=== PATIENT | male | born 1960 | race Caucasian/White ===

== ENCOUNTER 2022-05-29 07:42 | Inpatient (IN) | payer MEDICAID ==
[2022-05-29] VITALS (23 sets, daily range): BP systolic 99–121; BP diastolic 59–81
[~2022-05-29] VITALS: Ht 170.2 cm; Wt 116.3 kg
[~2022-05-29 07:42] MED LIST: ALD50 PO; FERR-63 PO; OMEP20CA14 PO; PROP10TA10 PO
[2022-05-29] MEDS ORDERED: SODIUM CHLORIDE 0.9% 1,000 ML IV ONE (08:00)
[2022-05-29 10:21] LABS: BASOPHILS % 0.9 % (0.0-2.0); EOSINOPHILS % 0.4 % (0.0-5.0); HEMATOCRIT. 35.2 % (42.0-52.0); HEMOGLOBIN. 12.2 g/dL (14.0-18.0); LYMPHOCYTES % 19.5 % (20.0-50.0); MEAN CORPUSCULAR VOLUME 109.5 fL (80.0-94.0); MEAN PLATELET VOLUME 8.7 fl (7.4-10.4); MONOCYTES % 8.5 % (2.0-8.0); NEUTROPHILS % 70.7 % (40.0-76.0); PLATELET 134 x1000/uL (130-400); RED BLOOD CELL COUNT 3.22 mill/uL (4.7-6.1); RED CELL DISTRIBUTION WIDTH 15.1 % (11.6-14.6)
[2022-05-29 10:29] LABS: INR 1.5; PROTHROMBIN TIME 15.7 sec (9.6-11.0)
[2022-05-29] MEDS ORDERED: CEFTRIAXONE 1 G PREMIX 50 ML IV SCH (10:30)
[2022-05-29] MEDS ORDERED: AZITHROMYCIN 500MG/250ML 250 ML IV SCH (10:30)
[2022-05-29 10:31] LABS: CHLORIDE 108 mEq/L (98-107)
[2022-05-29 10:38] LABS: ETHANOL BLOOD < 10 mg/dL
[2022-05-29] MEDS ORDERED: INSULIN REGULAR (HUMULIN R) 300UNITS/3ML VIAL IV ONE (11:00)
[2022-05-29] MEDS ORDERED: VECURONIUM BROMIDE 10 MG/VIAL IV ONE (11:00)
[2022-05-29] MEDS ORDERED: CALCIUM GLUCONATE 100MG/ML 10ML VIAL IV ONE (11:00)
[2022-05-29] MEDS ORDERED: DEXTROSE 50% WATER 50ML SYRINGE IV ONE (11:00)
[2022-05-29] MEDS ORDERED: SODIUM BICARBONATE 8.4% 1 MEQ/ML 50ML SYR IV ONE (11:00)
[2022-05-29] MEDS ORDERED: ETOMIDATE 2MG/ML 10ML VIAL IV ONE (11:00)
[2022-05-29] MEDS ORDERED: ETOMIDATE 2MG/ML 10ML VIAL IV NR (11:15)
[2022-05-29] MEDS ORDERED: SODIUM BICARBONATE 8.4% 1 MEQ/ML 50ML SYR IV NR (11:15)
[2022-05-29] MEDS ORDERED: VECURONIUM BROMIDE 10 MG/VIAL IV NR (11:15)
[2022-05-29] MEDS ORDERED: INSULIN REGULAR (HUMULIN R) 300UNITS/3ML VIAL IV NR (11:15)
[2022-05-29] MEDS ORDERED: FENTANYL 2500MCG/250ML PMX 250 ML IV ONE ×2 (11:45→21:00)
[2022-05-29 11:47] LABS: CLARITY URINE CLOUDY (CLEAR); COLOR URINE YELLOW (YELLOW); KETONES URINE NEGATIVE (NEGATIVE); LEUKOCYTE ESTERASE URINE 1+ (NEGATIVE); NITRITE URINE NEGATIVE (NEGATIVE); OCCULT BLOOD URINE NEGATIVE (NEGATIVE); PH URINE 6.5 (4.5-8.0); PROTEIN URINE NEGATIVE (NEGATIVE); SPECIFIC GRAVITY URINE 1.022 (1.005-1.030)
[2022-05-29] MEDS ORDERED: ALBUTEROL (0.083%) 2.5MG/3ML NEB HHN ONE (12:00)
[2022-05-29] MEDS: PROPOFOL 10MG/ML 100ML 100 ML IV SCH (12:12)
[2022-05-29 12:36] LABS: *AMPHETAMINES SCREEN URINE NEGATIVE (NEGATIVE); *BARBITURATES SCREEN URINE NEGATIVE (NEGATIVE); *BENZODIAZEPINES SCREEN URINE NEGATIVE (NEGATIVE); *COCAINE SCREEN URINE NEGATIVE (NEGATIVE); CANNABINOID URINE SCREEN NEGATIVE (NEGATIVE); METHADONE URINE SCREEN NEGATIVE (NEGATIVE); OPIATES URINE SCREEN NEGATIVE (NEGATIVE); PHENCYCLIDINE URINE SCREEN NEGATIVE (NEGATIVE)
[2022-05-29] MEDS ORDERED: ONDANSETRON HCL 4MG/2ML INJ IV PRN (13:00)
[2022-05-29 13:18] LABS: CHLORIDE 105 mEq/L (98-107)
[2022-05-29 13:20] LABS: BG BASE EXCESS -3.5 mmol/L (-2.0-2.0); BG CARBOXYHEMOGLOBIN 0.3 % (0.5-1.5); BG DEOXYHEMOGLOBIN 0.8 % (0.0-5.0); BG FRACTION INSPIRED OXYGEN 100; BG HCO3 ACT 21.2 mmol/L (22.0-26.0); BG METHEMOGLOBIN 0.1 % (0.0-1.5); BG OXYGEN SATURATION 99.2 % (92.0-98.5); BG OXYHEMOGLOBIN 98.8 % (94.0-97.0); BG PCO2 37.1 mmHg (35.0-45.0); BG PH 7.375 (7.350-7.450); BG PO2 270.3 mmHg (75.0-100.0); BG SAMPLE SITE RH; BG TOTAL HEMOGLOBIN 12.3 g/dL (12.0-18.0); BG VENT MODE VENT - AC/VC
[2022-05-29] MEDS: AMLODIPINE 10MG TABLET PO SCH (14:35)
[2022-05-29] MEDS: LACTULOSE 20G/30ML UDC PO SCH ×2 (14:36→21:44)
[2022-05-29] MEDS ORDERED: IOHEXOL-300 100 ML BOTTLE ONE (14:52)
[2022-05-29] MEDS ORDERED: PROPOFOL 10MG/ML 100ML 100 ML IV PRN (18:15)
[2022-05-29] MEDS: FENTANYL CITRATE/PF 2,500 MCG in SODIUM CHLORIDE 0.9% 200 ML IV PRN (21:00)
[2022-05-29] MEDS ORDERED: FENTANYL CITRATE 2,500 MCG in SODIUM CHLORIDE 0.9% 200 ML IV PRN (21:00)
[2022-05-29] MEDS: PIPERACILLIN/TAZOBACTAM 3.375 G in DEXTROSE 5% WATER 50 ML IV SCH (21:44)
[2022-05-30] VITALS (88 sets, daily range): BP systolic 74–122; BP diastolic 43–79
[2022-05-30] MEDS: PROPOFOL 10MG/ML 100ML 100 ML IV SCH (03:13)
[2022-05-30] MEDS: LACTULOSE 20G/30ML UDC PO SCH ×3 (05:17→22:09)
[2022-05-30 05:37] LABS: BASOPHILS % 0.9 % (0.0-2.0); EOSINOPHILS % 0.9 % (0.0-5.0); HEMATOCRIT. 30.2 % (42.0-52.0); HEMOGLOBIN. 10.5 g/dL (14.0-18.0); LYMPHOCYTES % 13.5 % (20.0-50.0); MEAN CORPUSCULAR HEMOGLOBIN 37.6 pg (28.0-32.0); MEAN CORPUSCULAR VOLUME 107.9 fL (80.0-94.0); MEAN PLATELET VOLUME 8.5 fl (7.4-10.4); MONOCYTES % 9.9 % (2.0-8.0); NEUTROPHILS % 74.8 % (40.0-76.0); PLATELET 111 x1000/uL (130-400)
[2022-05-30 06:18] LABS: FOLIC ACID (FOLATE) SERUM 13.3 ng/mL (>5.38)
[2022-05-30 08:29] LABS: BG BASE EXCESS -0.3 mmol/L (-2.0-2.0); BG CARBOXYHEMOGLOBIN 0.3 % (0.5-1.5); BG DEOXYHEMOGLOBIN 0.9 % (0.0-5.0); BG FRACTION INSPIRED OXYGEN 60; BG HCO3 ACT 20.9 mmol/L (22.0-26.0); BG METHEMOGLOBIN 0.1 % (0.0-1.5); BG OXYGEN SATURATION 99.1 % (92.0-98.5); BG OXYHEMOGLOBIN 98.7 % (94.0-97.0); BG PCO2 24.6 mmHg (35.0-45.0); BG PH 7.548 (7.350-7.450); BG PO2 240.2 mmHg (75.0-100.0); BG SAMPLE SITE RIGHT RADIAL; BG TOTAL HEMOGLOBIN 11.2 g/dL (12.0-18.0); BG TOTAL RESPIRATORY RATE 14 b/min; BG VENT MODE VENT - AC
[2022-05-30] MEDS ORDERED: ENOXAPARIN 40MG/0.4ML SYR SUBCUT SCH (09:00)
[2022-05-30] MEDS: AMLODIPINE 10MG TABLET PO SCH (09:00)
[2022-05-30] MEDS ORDERED: PANTOPRAZOLE SODIUM 40 MG/VIAL IV SCH ×2 (09:00)
[2022-05-30] MEDS: IPRATROPIUM/ALBUTEROL 0.5-3(2.5)MG/3ML NEB HHN SCH ×3 (09:17→20:43)
[2022-05-30 09:46] LABS: CHLORIDE 108 mEq/L (98-107)
[2022-05-30] MEDS: PIPERACILLIN/TAZOBACTAM 3.375 G in DEXTROSE 5% WATER 50 ML IV SCH (10:13)
[2022-05-30] MEDS: PHYTONADIONE 10MG/ML AMP SUBCUT SCH (14:18)
[2022-05-30] MEDS: OCTREOTIDE 1,000 MCG in SODIUM CHLORIDE 0.9% 98 ML IV SCH (14:19)
[2022-05-30] MEDS: RIFAXIMIN 550 MG TABLET PO SCH ×2 (14:19→22:08)
[2022-05-30] MEDS: PIPERACILLIN/TAZOBACTAM 3.375G in DEXT 5% WATER 50ML IV SCH ×2 (14:19→22:08)
[2022-05-30 16:10] LABS: INR 1.6; PROTHROMBIN TIME 16.2 sec (9.6-11.0)
[2022-05-30] MEDS: SODIUM CHLORIDE 0.45% 1,000 ML IV SCH (17:43)
[2022-05-30] MEDS: PANTOPRAZOLE SODIUM 40 MG/VIAL IV SCH (22:08)
[2022-05-31] VITALS (89 sets, daily range): BP systolic 78–183; BP diastolic 42–107
[2022-05-31] MEDS: FENTANYL CITRATE/PF 2,500 MCG in SODIUM CHLORIDE 0.9% 200 ML IV PRN (00:10)
[2022-05-31] MEDS: IPRATROPIUM/ALBUTEROL 0.5-3(2.5)MG/3ML NEB HHN SCH ×4 (01:46→20:49)
[2022-05-31 03:47] LABS: INR 1.6; PROTHROMBIN TIME 16.1 sec (9.6-11.0)
[2022-05-31 04:30] LABS: HEPATITIS B SURFACE ANTIGEN NEGATIVE
[2022-05-31 05:11] LABS: BASOPHILS % 0.4 % (0.0-2.0); EOSINOPHILS % 0.6 % (0.0-5.0); HEMATOCRIT. 28.6 % (42.0-52.0); HEMOGLOBIN. 9.9 g/dL (14.0-18.0); LYMPHOCYTES % 13.5 % (20.0-50.0); MEAN CORPUSCULAR HEMOGLOBIN 38.2 pg (28.0-32.0); MEAN CORPUSCULAR VOLUME 110.4 fL (80.0-94.0); MEAN PLATELET VOLUME 8.9 fl (7.4-10.4); MONOCYTES % 11.4 % (2.0-8.0); NEUTROPHILS % 74.1 % (40.0-76.0); PLATELET 84 x1000/uL (130-400); RED BLOOD CELL COUNT 2.59 mill/uL (4.7-6.1); RED CELL DISTRIBUTION WIDTH 15.3 % (11.6-14.6)
[2022-05-31] MEDS: BLOOD SUGAR DIAGNOSTIC STRIP TEST SCH ×3 (06:00→17:10)
[2022-05-31] MEDS: INSULIN LISPRO 100 UNITS/ML SUBCUT SCH ×3 (06:00→17:10)
[2022-05-31] MEDS: LACTULOSE 20G/30ML UDC PO SCH ×3 (07:28→22:03)
[2022-05-31] MEDS: PIPERACILLIN/TAZOBACTAM 3.375G in DEXT 5% WATER 50ML IV SCH (07:29)
[2022-05-31] MEDS: AMLODIPINE 10MG TABLET PO SCH (09:00)
[2022-05-31] MEDS: PHYTONADIONE 10MG/ML AMP SUBCUT SCH (09:21)
[2022-05-31] MEDS: PANTOPRAZOLE SODIUM 40 MG/VIAL IV SCH ×2 (09:21→22:03)
[2022-05-31] MEDS: RIFAXIMIN 550 MG TABLET PO SCH ×2 (09:22→22:03)
[2022-05-31] MEDS: OCTREOTIDE 1,000 MCG in SODIUM CHLORIDE 0.9% 98 ML IV SCH (09:23)
[2022-05-31] MEDS ORDERED: BISACODYL 10MG SUPP PR SCH (11:30)
[2022-05-31] MEDS: SODIUM CHLORIDE 0.45% 1,000 ML IV SCH (12:47)
[2022-05-31] MEDS: CEFEPIME 1,000 MG in DEXTROSE 5% WATER 50 ML IV SCH (12:47)
[2022-05-31] MEDS ORDERED: ROCURONIUM BROMIDE 10MG/ML VIAL 5ML IV ONE (14:06)
[2022-05-31] MEDS ORDERED: PROPOFOL 200MG/20ML VIAL IV ONE (14:06)
[2022-05-31] MEDS ORDERED: ONDANSETRON HCL 4MG/2ML INJ ONE (14:06)
[2022-05-31] MEDS ORDERED: DEXAMETHASONE 4MG/ML 1ML VIAL ONE (14:06)
[2022-05-31 15:14] LABS: CLARITY URINE TURBID (CLEAR); COLOR URINE DARK YELLOW (YELLOW); KETONES URINE NEGATIVE (NEGATIVE); LEUKOCYTE ESTERASE URINE 2+ (NEGATIVE); NITRITE URINE NEGATIVE (NEGATIVE); OCCULT BLOOD URINE 3+ (NEGATIVE); PROTEIN URINE 1+ (NEGATIVE)
[2022-06-01] VITALS (94 sets, daily range): BP systolic 96–156; BP diastolic 59–141
[2022-06-01] MEDS: BLOOD SUGAR DIAGNOSTIC STRIP TEST SCH ×4 (00:46→17:56)
[2022-06-01] MEDS: CEFEPIME 1,000 MG in DEXTROSE 5% WATER 50 ML IV SCH ×2 (00:47→12:00)
[2022-06-01] MEDS: IPRATROPIUM/ALBUTEROL 0.5-3(2.5)MG/3ML NEB HHN SCH ×4 (01:18→20:42)
[2022-06-01 03:31] LABS: INR 1.6; PROTHROMBIN TIME 16.8 sec (9.6-11.0)
[2022-06-01 03:33] LABS: HEMATOCRIT. 30.3 % (42.0-52.0); HEMOGLOBIN. 10.3 g/dL (14.0-18.0); MEAN CORPUSCULAR HEMOGLOBIN 38.3 pg (28.0-32.0); MEAN CORPUSCULAR VOLUME 112.4 fL (80.0-94.0); MEAN PLATELET VOLUME 9.4 fl (7.4-10.4); PLATELET 75 x1000/uL (130-400); RED BLOOD CELL COUNT 2.69 mill/uL (4.7-6.1); RED CELL DISTRIBUTION WIDTH 15.8 % (11.6-14.6)
[2022-06-01] MEDS: SODIUM CHLORIDE 0.45% 1,000 ML IV SCH ×2 (07:24→21:30)
[2022-06-01] MEDS: LACTULOSE 20G/30ML UDC PO SCH ×3 (07:24→21:04)
[2022-06-01] MEDS: INSULIN LISPRO 100 UNITS/ML SUBCUT SCH ×4 (07:28→17:56)
[2022-06-01] MEDS: FENTANYL CITRATE/PF 2,500 MCG in SODIUM CHLORIDE 0.9% 200 ML IV PRN (08:06)
[2022-06-01 08:08] LABS: BG FRACTION INSPIRED OXYGEN 40; BG PH 7.425 (7.350-7.450); BG SAMPLE SITE RIGHT RADIAL; BG TOTAL RESPIRATORY RATE 16 b/min; BG VENT MODE VENT - AC
[2022-06-01 08:09] LABS: BG BASE EXCESS -3.8 mmol/L (-2.0-2.0); BG CARBOXYHEMOGLOBIN 0.3 % (0.5-1.5); BG DEOXYHEMOGLOBIN 1.6 % (0.0-5.0); BG HCO3 ACT 19.7 mmol/L (22.0-26.0); BG METHEMOGLOBIN 0.3 % (0.0-1.5); BG OXYGEN SATURATION 98.4 % (92.0-98.5); BG OXYHEMOGLOBIN 97.8 % (94.0-97.0); BG PCO2 30.7 mmHg (35.0-45.0); BG PO2 128.7 mmHg (75.0-100.0); BG TOTAL HEMOGLOBIN 11.5 g/dL (12.0-18.0)
[2022-06-01] MEDS: AMLODIPINE 10MG TABLET PO SCH (09:43)
[2022-06-01] MEDS: PANTOPRAZOLE SODIUM 40 MG/VIAL IV SCH ×2 (09:43→20:53)
[2022-06-01] MEDS: RIFAXIMIN 550 MG TABLET PO SCH ×2 (09:44→20:53)
[2022-06-01] MEDS: PHYTONADIONE 10MG/ML AMP SUBCUT SCH (09:44)
[2022-06-01] MEDS ORDERED: LACTULOSE ENEMA 1,000ML BOTTLE PR SCH (10:00)
[2022-06-01 10:09] LABS: NUCLEATED RED BLOOD CELLS 2 /100 WBC; PLATELET ESTIMATE DECREASED
[2022-06-01 12:00] LABS: CREATINE KINASE 126 IU/L (39-308)
[2022-06-01] MEDS ORDERED: VANCOMYCIN 1500MG in DEXTROSE 5% WATER 250ML IV SCH (12:30)
[2022-06-02] VITALS (99 sets, daily range): BP systolic 66–164; BP diastolic 44–106
[2022-06-02] MEDS: BLOOD SUGAR DIAGNOSTIC STRIP TEST SCH ×5 (00:13→23:28)
[2022-06-02] MEDS: CEFEPIME 1,000 MG in DEXTROSE 5% WATER 50 ML IV SCH ×2 (00:20→11:25)
[2022-06-02] MEDS: INSULIN LISPRO 100 UNITS/ML SUBCUT SCH ×5 (00:23→23:28)
[2022-06-02] MEDS: IPRATROPIUM/ALBUTEROL 0.5-3(2.5)MG/3ML NEB HHN SCH ×4 (02:24→20:26)
[2022-06-02] MEDS: LACTULOSE 20G/30ML UDC PO SCH ×3 (05:49→21:32)
[2022-06-02 07:20] LABS: HEMATOCRIT. 27.6 % (42.0-52.0); HEMOGLOBIN. 9.5 g/dL (14.0-18.0); MEAN CORPUSCULAR VOLUME 113.7 fL (80.0-94.0); MEAN PLATELET VOLUME 9.5 fl (7.4-10.4); PLATELET 67 x1000/uL (130-400); RED BLOOD CELL COUNT 2.42 mill/uL (4.7-6.1)
[2022-06-02] MEDS: FENTANYL CITRATE/PF 2,500 MCG in SODIUM CHLORIDE 0.9% 200 ML IV PRN (07:23)
[2022-06-02 08:04] LABS: NUCLEATED RED BLOOD CELLS 6 /100 WBC
[2022-06-02 08:05] LABS: PLATELET ESTIMATE DECREASED
[2022-06-02] MEDS ORDERED: LIDOCAINE HCL 1% 30ML VIAL (10MG/ML) ONE (08:40)
[2022-06-02] MEDS: MIDODRINE HCL 5MG TABLET PO SCH ×3 (09:00→17:00)
[2022-06-02] MEDS: AMLODIPINE 10MG TABLET PO SCH (09:00)
[2022-06-02] MEDS: PANTOPRAZOLE SODIUM 40 MG/VIAL IV SCH ×2 (09:45→21:33)
[2022-06-02] MEDS: PHYTONADIONE 10MG/ML AMP SUBCUT SCH (09:45)
[2022-06-02] MEDS: RIFAXIMIN 550 MG TABLET PO SCH ×2 (09:45→21:33)
[2022-06-02 09:57] LABS: BG BASE EXCESS -6.5 mmol/L (-2.0-2.0); BG CARBOXYHEMOGLOBIN 0.3 % (0.5-1.5); BG DEOXYHEMOGLOBIN 2.3 % (0.0-5.0); BG FRACTION INSPIRED OXYGEN 40; BG HCO3 ACT 17.3 mmol/L (22.0-26.0); BG METHEMOGLOBIN 0.3 % (0.0-1.5); BG OXYGEN SATURATION 97.7 % (92.0-98.5); BG OXYHEMOGLOBIN 97.1 % (94.0-97.0); BG PCO2 28.7 mmHg (35.0-45.0); BG PH 7.398 (7.350-7.450); BG PO2 113.4 mmHg (75.0-100.0); BG SAMPLE SITE RIGHT RADIAL; BG TOTAL HEMOGLOBIN 10.3 g/dL (12.0-18.0); BG VENT MODE VENT - AC
[2022-06-02] MEDS: OCTREOTIDE ACETATE 50 MCG/ML 1ML SUBCUT SCH ×2 (11:25→21:32)
[2022-06-02] MEDS: METOCLOPRAMIDE HCL 10MG/2ML VIAL IV SCH ×3 (11:25→23:28)
[2022-06-02] MEDS: SODIUM CHLORIDE 0.45% 1,000 ML IV SCH (11:26)
[2022-06-02] MEDS ORDERED: NOREPINEPHRINE 32 MG in DEXT 5% WATER 218 ML IV PRN (13:30)
[2022-06-02] MEDS ORDERED: HYDRALAZINE 20MG/ML VIAL IV PRN (20:30)
[2022-06-02] MEDS ORDERED: VANCOMYCIN 750MG PREMIX 150 ML IV NR (21:00)
[2022-06-03] VITALS (90 sets, daily range): BP systolic 79–201; BP diastolic 31–147
[2022-06-03] MEDS: IPRATROPIUM/ALBUTEROL 0.5-3(2.5)MG/3ML NEB HHN SCH ×4 (00:48→20:54)
[2022-06-03] MEDS: SODIUM CHLORIDE 0.45% 1,000 ML IV SCH ×2 (00:54→13:56)
[2022-06-03 05:11] LABS: HEMATOCRIT. 25.9 % (42.0-52.0); HEMOGLOBIN. 8.8 g/dL (14.0-18.0); MEAN CORPUSCULAR HEMOGLOBIN 38.8 pg (28.0-32.0); MEAN CORPUSCULAR VOLUME 114.7 fL (80.0-94.0); MEAN PLATELET VOLUME 9.2 fl (7.4-10.4); PLATELET 67 x1000/uL (130-400); RED BLOOD CELL COUNT 2.25 mill/uL (4.7-6.1)
[2022-06-03] MEDS: BLOOD SUGAR DIAGNOSTIC STRIP TEST SCH ×4 (05:52→23:42)
[2022-06-03] MEDS: INSULIN LISPRO 100 UNITS/ML SUBCUT SCH ×4 (05:52→23:42)
[2022-06-03] MEDS: LACTULOSE 20G/30ML UDC PO SCH ×4 (05:59→22:00)
[2022-06-03] MEDS: METOCLOPRAMIDE HCL 10MG/2ML VIAL IV SCH ×4 (05:59→23:44)
[2022-06-03] MEDS: AMLODIPINE 10MG TABLET PO SCH (08:48)
[2022-06-03] MEDS ORDERED: ASPIRIN 81MG TABLET PO SCH (09:00)
[2022-06-03] MEDS ORDERED: ENOXAPARIN 40MG/0.4ML SYR SUBCUT SCH (09:00)
[2022-06-03] MEDS: PANTOPRAZOLE SODIUM 40 MG/VIAL IV SCH ×2 (09:00→21:26)
[2022-06-03] MEDS: RIFAXIMIN 550 MG TABLET PO SCH ×2 (09:26→21:27)
[2022-06-03] MEDS: MIDODRINE HCL 5MG TABLET PO SCH ×3 (09:26→17:44)
[2022-06-03] MEDS: OCTREOTIDE ACETATE 50 MCG/ML 1ML SUBCUT SCH ×2 (09:27→21:27)
[2022-06-03 09:59] LABS: NUCLEATED RED BLOOD CELLS 1 /100 WBC
[2022-06-03 10:00] LABS: PLATELET ESTIMATE DECREASED
[2022-06-03 10:11] LABS: BG CARBOXYHEMOGLOBIN 0.4 % (0.5-1.5); BG DEOXYHEMOGLOBIN 6.5 % (0.0-5.0); BG FRACTION INSPIRED OXYGEN 40; BG HCO3 ACT 19.6 mmol/L (22.0-26.0); BG METHEMOGLOBIN 0.3 % (0.0-1.5); BG OXYGEN SATURATION 93.5 % (92.0-98.5); BG OXYHEMOGLOBIN 92.8 % (94.0-97.0); BG PCO2 34.4 mmHg (35.0-45.0); BG PH 7.373 (7.350-7.450); BG PO2 73.1 mmHg (75.0-100.0); BG SAMPLE SITE RIGHT RADIAL; BG TOTAL HEMOGLOBIN 9.8 g/dL (12.0-18.0); BG VENT MODE NASAL CANNULA
[2022-06-03] MEDS ORDERED: CEFEPIME 1,000 MG in DEXTROSE 5% WATER 50 ML IV SCH (11:00)
[2022-06-03] MEDS: AMPICILLIN SOD/SULBACTAM NA 3 G in SODIUM CHLORIDE 0.9% 100 ML IV SCH ×2 (13:56→23:44)
[2022-06-04] VITALS (35 sets, daily range): BP systolic 96–131; BP diastolic 39–70
[2022-06-04] MEDS: IPRATROPIUM/ALBUTEROL 0.5-3(2.5)MG/3ML NEB HHN SCH ×2 (02:28→20:50)
[2022-06-04] MEDS: INSULIN LISPRO 100 UNITS/ML SUBCUT SCH ×3 (05:17→17:20)
[2022-06-04] MEDS: LACTULOSE 20G/30ML UDC PO SCH ×3 (05:17→22:07)
[2022-06-04] MEDS: BLOOD SUGAR DIAGNOSTIC STRIP TEST SCH ×3 (05:17→17:20)
[2022-06-04] MEDS: METOCLOPRAMIDE HCL 10MG/2ML VIAL IV SCH ×3 (05:17→17:19)
[2022-06-04] MEDS: SODIUM CHLORIDE 0.45% 1,000 ML IV SCH ×2 (05:18→17:20)
[2022-06-04 05:49] LABS: HEMATOCRIT. 27.6 % (42.0-52.0); MEAN CORPUSCULAR VOLUME 119.9 fL (80.0-94.0); MEAN PLATELET VOLUME 9.4 fl (7.4-10.4); PLATELET 58 x1000/uL (130-400); RED CELL DISTRIBUTION WIDTH 20.1 % (11.6-14.6)
[2022-06-04] MEDS: AMLODIPINE 10MG TABLET PO SCH (09:00)
[2022-06-04] MEDS: PANTOPRAZOLE SODIUM 40 MG/VIAL IV SCH ×2 (09:01→22:08)
[2022-06-04] MEDS: RIFAXIMIN 550 MG TABLET PO SCH (09:01)
[2022-06-04] MEDS: MIDODRINE HCL 5MG TABLET PO SCH ×3 (09:02→17:19)
[2022-06-04] MEDS: OCTREOTIDE ACETATE 50 MCG/ML 1ML SUBCUT SCH ×2 (10:01→22:08)
[2022-06-04] MEDS: AMPICILLIN SOD/SULBACTAM NA 3 G in SODIUM CHLORIDE 0.9% 100 ML IV SCH (12:28)
[2022-06-04 13:47] LABS: NUCLEATED RED BLOOD CELLS 1 /100 WBC
[2022-06-04 13:49] LABS: PLATELET ESTIMATE MARKEDLY DECREASED
[2022-06-04 18:20] LABS: HEMATOCRIT 25.7 % (42.0-52.0); HEMOGLOBIN 8.6 g/dL (14.0-18.0)
[2022-06-04 23:17] LABS: HEMATOCRIT 26.5 % (42.0-52.0); HEMOGLOBIN 8.5 g/dL (14.0-18.0)
[2022-06-05] VITALS (10 sets, daily range): BP systolic 96–141; BP diastolic 42–72
[2022-06-05] MEDS: METOCLOPRAMIDE HCL 10MG/2ML VIAL IV SCH ×4 (00:21→18:18)
[2022-06-05] MEDS: AMPICILLIN SOD/SULBACTAM NA 3 G in SODIUM CHLORIDE 0.9% 100 ML IV SCH ×2 (00:21→12:07)
[2022-06-05] MEDS: IPRATROPIUM/ALBUTEROL 0.5-3(2.5)MG/3ML NEB HHN SCH ×4 (02:30→20:42)
[2022-06-05] MEDS: LACTULOSE 20G/30ML UDC PO SCH ×3 (05:29→22:22)
[2022-06-05] MEDS: BLOOD SUGAR DIAGNOSTIC STRIP TEST SCH ×4 (05:30→18:00)
[2022-06-05] MEDS: SODIUM CHLORIDE 0.45% 1,000 ML IV SCH ×2 (05:30→22:21)
[2022-06-05] MEDS: INSULIN LISPRO 100 UNITS/ML SUBCUT SCH ×4 (05:30→18:00)
[2022-06-05 05:35] LABS: HEMATOCRIT. 26.7 % (42.0-52.0); HEMOGLOBIN. 8.8 g/dL (14.0-18.0); MEAN CORPUSCULAR VOLUME 117.6 fL (80.0-94.0); MEAN PLATELET VOLUME 8.9 fl (7.4-10.4); PLATELET 60 x1000/uL (130-400); RED BLOOD CELL COUNT 2.27 mill/uL (4.7-6.1); RED CELL DISTRIBUTION WIDTH 21.4 % (11.6-14.6)
[2022-06-05] MEDS: AMLODIPINE 10MG TABLET PO SCH (08:55)
[2022-06-05] MEDS: MIDODRINE HCL 5MG TABLET PO SCH ×3 (09:28→18:18)
[2022-06-05] MEDS: PANTOPRAZOLE SODIUM 40 MG/VIAL IV SCH ×2 (09:29→22:22)
[2022-06-05] MEDS: OCTREOTIDE ACETATE 50 MCG/ML 1ML SUBCUT SCH ×2 (09:35→22:22)
[2022-06-05 12:25] LABS: HEMATOCRIT 24.6 % (42.0-52.0); HEMOGLOBIN 8.2 g/dL (14.0-18.0)
[2022-06-05 22:44] LABS: PLATELET ESTIMATE DECREASED
[2022-06-06] VITALS (15 sets, daily range): BP systolic 73–131; BP diastolic 45–75
[2022-06-06] MEDS: METOCLOPRAMIDE HCL 10MG/2ML VIAL IV SCH ×4 (00:05→18:04)
[2022-06-06] MEDS: BLOOD SUGAR DIAGNOSTIC STRIP TEST SCH ×4 (00:06→18:03)
[2022-06-06] MEDS: AMPICILLIN SOD/SULBACTAM NA 3 G in SODIUM CHLORIDE 0.9% 100 ML IV SCH ×2 (00:06→13:20)
[2022-06-06] MEDS: IPRATROPIUM/ALBUTEROL 0.5-3(2.5)MG/3ML NEB HHN SCH ×3 (01:32→20:05)
[2022-06-06] MEDS: LACTULOSE 20G/30ML UDC PO SCH ×3 (05:53→22:01)
[2022-06-06] MEDS: INSULIN LISPRO 100 UNITS/ML SUBCUT SCH ×4 (06:00→18:00)
[2022-06-06 06:39] LABS: HEMATOCRIT. 26.5 % (42.0-52.0); HEMOGLOBIN. 8.9 g/dL (14.0-18.0); MEAN CORPUSCULAR HEMOGLOBIN 39.2 pg (28.0-32.0); MEAN CORPUSCULAR VOLUME 116.3 fL (80.0-94.0); MEAN PLATELET VOLUME 8.9 fl (7.4-10.4); PLATELET 69 x1000/uL (130-400); RED BLOOD CELL COUNT 2.28 mill/uL (4.7-6.1); RED CELL DISTRIBUTION WIDTH 21.1 % (11.6-14.6)
[2022-06-06] MEDS: AMLODIPINE 10MG TABLET PO SCH (08:53)
[2022-06-06] MEDS: PANTOPRAZOLE SODIUM 40 MG/VIAL IV SCH ×2 (08:53→22:02)
[2022-06-06] MEDS: MIDODRINE HCL 5MG TABLET PO SCH ×3 (08:54→18:08)
[2022-06-06] MEDS: OCTREOTIDE ACETATE 50 MCG/ML 1ML SUBCUT SCH ×2 (09:21→22:01)
[2022-06-06] MEDS: SODIUM CHLORIDE 0.45% 1,000 ML IV SCH ×2 (09:22→22:01)
[2022-06-06 17:02] LABS: NUCLEATED RED BLOOD CELLS 1 /100 WBC; PLATELET ESTIMATE DECREASED
[2022-06-07] VITALS: BP 103/59
[2022-06-07] MEDS: AMPICILLIN SOD/SULBACTAM NA 3 G in SODIUM CHLORIDE 0.9% 100 ML IV SCH ×2 (00:30→12:00)
[2022-06-07] MEDS: METOCLOPRAMIDE HCL 10MG/2ML VIAL IV SCH ×4 (00:31→17:08)
[2022-06-07] MEDS: BLOOD SUGAR DIAGNOSTIC STRIP TEST SCH ×4 (00:31→17:03)
[2022-06-07] MEDS: IPRATROPIUM/ALBUTEROL 0.5-3(2.5)MG/3ML NEB HHN SCH ×4 (02:08→19:44)
[2022-06-07 04:00] VITALS: BP 102/64
[2022-06-07 05:50] LABS: HEMOGLOBIN. 9.8 g/dL (14.0-18.0); MEAN CORPUSCULAR HEMOGLOBIN 38.7 pg (28.0-32.0); MEAN CORPUSCULAR VOLUME 118.7 fL (80.0-94.0); MEAN PLATELET VOLUME 8.8 fl (7.4-10.4); PLATELET 69 x1000/uL (130-400); RED BLOOD CELL COUNT 2.53 mill/uL (4.7-6.1); RED CELL DISTRIBUTION WIDTH 22.4 % (11.6-14.6)
[2022-06-07] MEDS: INSULIN LISPRO 100 UNITS/ML SUBCUT SCH ×4 (06:00→17:03)
[2022-06-07] MEDS: LACTULOSE 20G/30ML UDC PO SCH (06:39)
[2022-06-07 08:00] VITALS: BP 103/59
[2022-06-07] MEDS: AMLODIPINE 10MG TABLET PO SCH (08:00)
[2022-06-07] MEDS: PANTOPRAZOLE SODIUM 40 MG/VIAL IV SCH (08:18)
[2022-06-07] MEDS: MIDODRINE HCL 5MG TABLET PO SCH ×4 (08:18→17:08)
[2022-06-07] MEDS: OCTREOTIDE ACETATE 50 MCG/ML 1ML SUBCUT SCH (08:19)
[2022-06-07] MEDS: SODIUM CHLORIDE 0.45% 1,000 ML IV SCH (11:54)
[2022-06-07 12:00] VITALS: BP 119/74
[2022-06-07 16:00] VITALS: BP 128/88
[2022-06-07 16:12] LABS: NUCLEATED RED BLOOD CELLS 6 /100 WBC; PLATELET ESTIMATE MARKEDLY DECREASED
[2022-06-07] MEDS ORDERED: DIGOXIN 500MCG/2ML AMP IV NR (19:15)
[2022-06-07 20:00] VITALS: BP 125/81
[2022-06-07] MEDS: DEXTROSE 50% WATER 50ML SYRINGE IV PRN ×2 (21:22→23:12)
[2022-06-07 21:33] LABS: BG BASE EXCESS -11.6 mmol/L (-2.0-2.0); BG DEOXYHEMOGLOBIN 2.4 % (0.0-5.0); BG FRACTION INSPIRED OXYGEN 100; BG HCO3 ACT 11.7 mmol/L (22.0-26.0); BG METHEMOGLOBIN 0.1 % (0.0-1.5); BG OXYGEN SATURATION 97.6 % (92.0-98.5); BG OXYHEMOGLOBIN 96.5 % (94.0-97.0); BG PCO2 20.6 mmHg (35.0-45.0); BG PH 7.373 (7.350-7.450); BG PO2 105.1 mmHg (75.0-100.0); BG SAMPLE SITE RIGHT RADIAL; BG TOTAL HEMOGLOBIN 10.9 g/dL (12.0-18.0); BG VENT MODE MASK - NRB
[2022-06-07] MEDS ORDERED: SODIUM BICARBONATE 8.4% 1 MEQ/ML 50ML SYR IV NR (21:45)
[2022-06-08] VITALS (71 sets, daily range): BP systolic 69–259; BP diastolic 33–193
[2022-06-08] MEDS: PANTOPRAZOLE SODIUM 40 MG/VIAL IV SCH ×3 (00:01→21:49)
[2022-06-08] MEDS: OCTREOTIDE ACETATE 50 MCG/ML 1ML SUBCUT SCH ×3 (00:01→21:50)
[2022-06-08] MEDS: METOCLOPRAMIDE HCL 10MG/2ML VIAL IV SCH ×4 (00:07→18:04)
[2022-06-08] MEDS: BLOOD SUGAR DIAGNOSTIC STRIP TEST SCH ×8 (00:07→18:03)
[2022-06-08] MEDS: AMPICILLIN SOD/SULBACTAM NA 3 G in SODIUM CHLORIDE 0.9% 100 ML IV SCH ×2 (00:07→12:57)
[2022-06-08] MEDS: SODIUM CHLORIDE 0.45% 1,000 ML IV SCH (01:00)
[2022-06-08] MEDS: IPRATROPIUM/ALBUTEROL 0.5-3(2.5)MG/3ML NEB HHN SCH ×2 (01:06→20:27)
[2022-06-08] MEDS: DEXTROSE 50% WATER 50ML SYRINGE IV PRN ×3 (04:21→09:29)
[2022-06-08] MEDS ORDERED: LORAZEPAM 2MG/ML CPJ IV NR ×2 (04:45→05:15)
[2022-06-08] MEDS: INSULIN LISPRO 100 UNITS/ML SUBCUT SCH ×4 (06:00→17:47)
[2022-06-08] MEDS ORDERED: NOREPINEPHRINE 16 MG in DEXT 5% WATER 242 ML IV PRN (06:15)
[2022-06-08] MEDS: DEXT 5%/0.45% NACL 1000ML 1,000 ML IV SCH ×2 (06:48→21:49)
[2022-06-08 06:52] LABS: HEMATOCRIT. 27.3 % (42.0-52.0); HEMOGLOBIN. 8.5 g/dL (14.0-18.0); MEAN CORPUSCULAR VOLUME 121.6 fL (80.0-94.0); MEAN PLATELET VOLUME 8.5 fl (7.4-10.4); PLATELET 65 x1000/uL (130-400); RED BLOOD CELL COUNT 2.25 mill/uL (4.7-6.1); RED CELL DISTRIBUTION WIDTH 22.7 % (11.6-14.6)
[2022-06-08 07:00] LABS: PROTHROMBIN TIME 29.8 sec (9.6-11.0)
[2022-06-08 07:55] LABS: HEPATITIS B SURFACE ANTIGEN NEGATIVE
[2022-06-08 08:06] LABS: BG BASE EXCESS -11.6 mmol/L (-2.0-2.0); BG CARBOXYHEMOGLOBIN 0.1 % (0.5-1.5); BG DEOXYHEMOGLOBIN 5.9 % (0.0-5.0); BG FRACTION INSPIRED OXYGEN 60; BG HCO3 ACT 13.9 mmol/L (22.0-26.0); BG METHEMOGLOBIN 0.3 % (0.0-1.5); BG OXYGEN SATURATION 94.1 % (92.0-98.5); BG OXYHEMOGLOBIN 93.7 % (94.0-97.0); BG PH 7.283 (7.350-7.450); BG PO2 85.2 mmHg (75.0-100.0); BG SAMPLE SITE RIGHT RADIAL; BG TOTAL HEMOGLOBIN 9.6 g/dL (12.0-18.0); BG VENT MODE MASK - BIPAP
[2022-06-08] MEDS ORDERED: PHENYLEPHRINE 50 MG in DEXT 5% WATER 245 ML IV PRN (08:45)
[2022-06-08] MEDS: AMLODIPINE 10MG TABLET PO SCH (08:57)
[2022-06-08] MEDS: NOREPINEPHRINE 32 MG in DEXT 5% WATER 218 ML IV PRN ×2 (09:30→21:49)
[2022-06-08] MEDS: LACTULOSE 20G/30ML UDC PO SCH (09:30)
[2022-06-08] MEDS: MIDODRINE HCL 5MG TABLET PO SCH ×3 (09:31→17:00)
[2022-06-08] MEDS ORDERED: DIATR MEGLU/DIATRIZOATE SOLN 30ML PO SCH (11:00)
[2022-06-08] MEDS: IPRATROPIUM/ALBUTEROL 0.5-3(2.5)MG/3ML NEB HHN PRN ×2 (12:43→16:15)
[2022-06-08 14:19] LABS: NUCLEATED RED BLOOD CELLS 9 /100 WBC
[2022-06-08 14:20] LABS: PLATELET ESTIMATE DECREASED
[2022-06-08 15:18] LABS: HEPATITIS B SURFACE ANTIGEN NEGATIVE
[2022-06-08 16:02] LABS: BG BASE EXCESS -10.2 mmol/L (-2.0-2.0); BG CARBOXYHEMOGLOBIN 0.3 % (0.5-1.5); BG DEOXYHEMOGLOBIN 1.7 % (0.0-5.0); BG FRACTION INSPIRED OXYGEN 100; BG HCO3 ACT 15.4 mmol/L (22.0-26.0); BG METHEMOGLOBIN 0.6 % (0.0-1.5); BG OXYGEN SATURATION 98.3 % (92.0-98.5); BG OXYHEMOGLOBIN 97.4 % (94.0-97.0); BG PCO2 33.3 mmHg (35.0-45.0); BG PH 7.284 (7.350-7.450); BG PO2 135.7 mmHg (75.0-100.0); BG SAMPLE SITE LEFT RADIAL; BG TOTAL HEMOGLOBIN 11.3 g/dL (12.0-18.0); BG VENT MODE VENT - AC
[2022-06-08] MEDS: PROPOFOL 10MG/ML 100ML 100 ML IV PRN ×2 (17:45→21:50)
[2022-06-08] MEDS ORDERED: SODIUM BICARBONATE 8.4% 1 MEQ/ML 50ML SYR IV NR (17:45)
[2022-06-09] VITALS (88 sets, daily range): BP systolic 39–184; BP diastolic 22–137
[2022-06-09] MEDS: BLOOD SUGAR DIAGNOSTIC STRIP TEST SCH ×8 (00:29→20:00)
[2022-06-09] MEDS: METOCLOPRAMIDE HCL 10MG/2ML VIAL IV SCH ×5 (00:29→23:23)
[2022-06-09] MEDS: PROPOFOL 10MG/ML 100ML 100 ML IV PRN ×4 (00:29→13:10)
[2022-06-09] MEDS: AMPICILLIN SOD/SULBACTAM NA 3 G in SODIUM CHLORIDE 0.9% 100 ML IV SCH ×2 (00:52→13:45)
[2022-06-09] MEDS: IPRATROPIUM/ALBUTEROL 0.5-3(2.5)MG/3ML NEB HHN SCH ×4 (01:56→20:16)
[2022-06-09] MEDS: INSULIN LISPRO 100 UNITS/ML SUBCUT SCH ×6 (06:00→20:00)
[2022-06-09 06:17] LABS: HEMATOCRIT. 28.4 % (42.0-52.0); HEMOGLOBIN. 9.4 g/dL (14.0-18.0); MEAN CORPUSCULAR HEMOGLOBIN 38.9 pg (28.0-32.0); MEAN CORPUSCULAR VOLUME 117.7 fL (80.0-94.0); RED BLOOD CELL COUNT 2.41 mill/uL (4.7-6.1); RED CELL DISTRIBUTION WIDTH 21.1 % (11.6-14.6)
[2022-06-09 07:21] LABS: MEAN PLATELET VOLUME 8.2 fl (7.4-10.4); PLATELET 62 x1000/uL (130-400)
[2022-06-09 07:35] LABS: NUCLEATED RED BLOOD CELLS 13 /100 WBC; PLATELET ESTIMATE DECREASED
[2022-06-09] MEDS: AMLODIPINE 10MG TABLET PO SCH (08:42)
[2022-06-09] MEDS: PANTOPRAZOLE SODIUM 40 MG/VIAL IV SCH ×2 (08:42→22:36)
[2022-06-09] MEDS: LACTULOSE 20G/30ML UDC PO SCH (08:42)
[2022-06-09] MEDS: MIDODRINE HCL 5MG TABLET PO SCH ×3 (08:43→17:00)
[2022-06-09 08:53] LABS: BG BASE EXCESS -4.3 mmol/L (-2.0-2.0); BG CARBOXYHEMOGLOBIN 0.7 % (0.5-1.5); BG DEOXYHEMOGLOBIN 4.7 % (0.0-5.0); BG FRACTION INSPIRED OXYGEN 75; BG HCO3 ACT 19.5 mmol/L (22.0-26.0); BG METHEMOGLOBIN 0.3 % (0.0-1.5); BG OXYGEN SATURATION 95.3 % (92.0-98.5); BG OXYHEMOGLOBIN 94.3 % (94.0-97.0); BG PCO2 30.4 mmHg (35.0-45.0); BG PH 7.424 (7.350-7.450); BG PO2 76.2 mmHg (75.0-100.0); BG SAMPLE SITE LEFT RADIAL; BG TOTAL HEMOGLOBIN 8.6 g/dL (12.0-18.0); BG TOTAL RESPIRATORY RATE 26 b/min; BG VENT MODE VENT - AC
[2022-06-09] MEDS ORDERED: DIATR MEGLU/DIATRIZOATE SOLN 120ML ONE (09:22)
[2022-06-09] MEDS: OCTREOTIDE ACETATE 50 MCG/ML 1ML SUBCUT SCH ×2 (10:24→22:52)
[2022-06-09] MEDS: NOREPINEPHRINE 32 MG in DEXT 5% WATER 218 ML IV PRN ×3 (13:46→22:04)
[2022-06-09] MEDS: DEXT 5%/0.45% NACL 1000ML 1,000 ML IV SCH (13:46)
[2022-06-09] MEDS ORDERED: TRANEXAMIC ACID 1,000 MG in SODIUM CHLORIDE 0.9% 100 ML IV PRN (17:30)
[2022-06-09] MEDS ORDERED: TRANEXAMIC ACID 1,000 MG in SODIUM CHLORIDE 0.9% 100 ML IV NR (17:30)
[2022-06-09] MEDS ORDERED: ROCURONIUM BROMIDE 10MG/ML VIAL 5ML IV ONE (18:10)
[2022-06-09] MEDS ORDERED: ONDANSETRON HCL 4MG/2ML INJ ONE (18:37)
[2022-06-09] MEDS ORDERED: DEXAMETHASONE 4MG/ML 1ML VIAL ONE (18:37)
[2022-06-09] MEDS ORDERED: CEFAZOLIN SODIUM 1000MG/VIAL ONE (18:37)
[2022-06-09] MEDS ORDERED: FENTANYL CITRATE/PF 50MCG/ML 2ML VIAL ONE (18:38)
[2022-06-09] MEDS ORDERED: FENTANYL 2500MCG/250ML PMX 250 ML IV ONE (19:00)
[2022-06-09] MEDS ORDERED: MIDAZOLAM 100MG/100ML PMX 100 ML IV PRN (19:00)
[2022-06-09] MEDS ORDERED: PHENYLEPHRINE HCL 10 MG/ML 1ML (IV VIAL) IV ONE ×2 (19:14→20:02)
[2022-06-09] MEDS ORDERED: MIDAZOLAM HCL 100 MG in SODIUM CHLORIDE 0.9% 100 ML IV PRN (19:15)
[2022-06-09] MEDS ORDERED: ALBUMIN HUMAN 12.5G/250ML (5%) IV ONE (19:31)
[2022-06-09] MEDS ORDERED: ALBUMIN HUMAN 12.5GM/50ML (25%) IV ONE (20:05)
[2022-06-09] MEDS: DEXTROSE 50% WATER 50ML SYRINGE IV PRN (21:06)
[2022-06-09 22:41] LABS: HEMATOCRIT 23.9 % (42.0-52.0); HEMOGLOBIN 7.3 g/dL (14.0-18.0); MEAN CORPUSCULAR HEMOGLOBIN 36.7 pg (28.0-32.0); MEAN CORPUSCULAR VOLUME 119.8 fL (80.0-94.0); RED BLOOD CELL COUNT 1.99 mill/uL (4.7-6.1); RED CELL DISTRIBUTION WIDTH 20.6 % (11.6-14.6)
[2022-06-09 22:51] LABS: PLATELET 46 x1000/uL (130-400)
[2022-06-09 22:59] LABS: INR 2.6; PROTHROMBIN TIME 25.6 sec (9.6-11.0)
[2022-06-09 23:05] LABS: PARTIAL THROMBOPLASTIN TIME 83.3 sec (23.4-31.0)
[2022-06-10] VITALS (102 sets, daily range): BP systolic 49–144; BP diastolic 26–101
[2022-06-10] MEDS: AMPICILLIN SOD/SULBACTAM NA 3 G in SODIUM CHLORIDE 0.9% 100 ML IV SCH ×2
[2022-06-10] MEDS: BLOOD SUGAR DIAGNOSTIC STRIP TEST SCH ×6 (00:57→20:44)
[2022-06-10] MEDS: IPRATROPIUM/ALBUTEROL 0.5-3(2.5)MG/3ML NEB HHN SCH ×4 (01:09→20:34)
[2022-06-10] MEDS: NOREPINEPHRINE 32 MG in DEXT 5% WATER 218 ML IV PRN (02:53)
[2022-06-10] MEDS: FENTANYL CITRATE 2,500 MCG in SODIUM CHLORIDE 0.9% 200 ML IV PRN (03:40)
[2022-06-10] MEDS: INSULIN LISPRO 100 UNITS/ML SUBCUT SCH ×6 (04:00→20:00)
[2022-06-10] MEDS: METOCLOPRAMIDE HCL 10MG/2ML VIAL IV SCH (05:05)
[2022-06-10] MEDS ORDERED: FUROSEMIDE 40MG/4ML VIAL IVP NR (05:15)
[2022-06-10 06:06] LABS: HEMATOCRIT. 28.9 % (42.0-52.0); HEMOGLOBIN. 9.4 g/dL (14.0-18.0); MEAN CORPUSCULAR HEMOGLOBIN 34.9 pg (28.0-32.0); MEAN CORPUSCULAR VOLUME 107.4 fL (80.0-94.0); MEAN PLATELET VOLUME 8.3 fl (7.4-10.4); RED BLOOD CELL COUNT 2.69 mill/uL (4.7-6.1); RED CELL DISTRIBUTION WIDTH 25.5 % (11.6-14.6)
[2022-06-10 06:32] LABS: PLATELET 30 x1000/uL (130-400)
[2022-06-10] MEDS ORDERED: LIDOCAINE HCL 1% 30ML VIAL (10MG/ML) ONE (07:40)
[2022-06-10 07:46] LABS: NUCLEATED RED BLOOD CELLS 20 /100 WBC; PLATELET ESTIMATE MARKEDLY DECREASED
[2022-06-10] MEDS: MIDODRINE HCL 5MG TABLET PO SCH ×4 (08:48→16:54)
[2022-06-10] MEDS: AMLODIPINE 10MG TABLET PO SCH (08:48)
[2022-06-10] MEDS: LACTULOSE 20G/30ML UDC PO SCH (08:48)
[2022-06-10] MEDS: PANTOPRAZOLE SODIUM 40 MG/VIAL IV SCH ×2 (08:48→21:38)
[2022-06-10 08:51] LABS: BG BASE EXCESS -8.7 mmol/L (-2.0-2.0); BG CARBOXYHEMOGLOBIN 0.2 % (0.5-1.5); BG DEOXYHEMOGLOBIN 1.1 % (0.0-5.0); BG FRACTION INSPIRED OXYGEN 80; BG METHEMOGLOBIN 0.3 % (0.0-1.5); BG OXYGEN SATURATION 98.9 % (92.0-98.5); BG OXYHEMOGLOBIN 98.4 % (94.0-97.0); BG PCO2 30.2 mmHg (35.0-45.0); BG PH 7.342 (7.350-7.450); BG PO2 166.5 mmHg (75.0-100.0); BG SAMPLE SITE RIGHT RADIAL; BG TOTAL HEMOGLOBIN 9.4 g/dL (12.0-18.0); BG TOTAL RESPIRATORY RATE 22 b/min; BG VENT MODE VENT - AC
[2022-06-10] MEDS: PHENYLEPHRINE 100 MG in DEXT 5% WATER 240 ML IV PRN ×3 (09:05→18:48)
[2022-06-10] MEDS: VASOPRESSIN 20 UNIT in SODIUM CHLORIDE 0.9% 99 ML IV PRN ×2 (09:06→13:46)
[2022-06-10] MEDS ORDERED: ALBUMIN HUMAN 25GM/100ML (25%) IV NR (10:15)
[2022-06-10] MEDS: OCTREOTIDE ACETATE 50 MCG/ML 1ML SUBCUT SCH ×2 (10:25→21:38)
[2022-06-10] MEDS: DEXT 5%/0.45% NACL 1000ML 1,000 ML IV SCH (10:25)
[2022-06-10] MEDS ORDERED: SODIUM BICARBONATE 8.4% 1 MEQ/ML 50ML SYR IV NR (11:15)
[2022-06-10] MEDS: MEROPENEM 1,000 MG in SODIUM CHLORIDE 0.9% 100 ML IV SCH (14:44)
[2022-06-11] VITALS (90 sets, daily range): BP systolic 71–210; BP diastolic 30–97
[2022-06-11] MEDS: BLOOD SUGAR DIAGNOSTIC STRIP TEST SCH ×6 (00:22→20:00)
[2022-06-11] MEDS: PHENYLEPHRINE 100 MG in DEXT 5% WATER 240 ML IV PRN ×5 (00:59→21:24)
[2022-06-11] MEDS: VASOPRESSIN 20 UNIT in SODIUM CHLORIDE 0.9% 99 ML IV PRN ×2 (01:51→13:01)
[2022-06-11] MEDS: IPRATROPIUM/ALBUTEROL 0.5-3(2.5)MG/3ML NEB HHN SCH ×2 (02:22→08:49)
[2022-06-11] MEDS: INSULIN LISPRO 100 UNITS/ML SUBCUT SCH ×6 (03:56→20:00)
[2022-06-11 05:40] LABS: HEMATOCRIT. 25.2 % (42.0-52.0); HEMOGLOBIN. 8.4 g/dL (14.0-18.0); MEAN CORPUSCULAR HEMOGLOBIN 34.6 pg (28.0-32.0); MEAN CORPUSCULAR VOLUME 103.6 fL (80.0-94.0); MEAN PLATELET VOLUME 9.2 fl (7.4-10.4); RED BLOOD CELL COUNT 2.43 mill/uL (4.7-6.1); RED CELL DISTRIBUTION WIDTH 25.8 % (11.6-14.6)
[2022-06-11 06:14] LABS: PLATELET 42 x1000/uL (130-400)
[2022-06-11 07:52] LABS: NUCLEATED RED BLOOD CELLS 16 /100 WBC
[2022-06-11 07:53] LABS: PLATELET ESTIMATE DECREASED
[2022-06-11 08:47] LABS: BG BASE EXCESS -2.8 mmol/L (-2.0-2.0); BG CARBOXYHEMOGLOBIN 0.1 % (0.5-1.5); BG DEOXYHEMOGLOBIN 3.6 % (0.0-5.0); BG FRACTION INSPIRED OXYGEN 60; BG HCO3 ACT 20.4 mmol/L (22.0-26.0); BG OXYGEN SATURATION 96.4 % (92.0-98.5); BG OXYHEMOGLOBIN 96.3 % (94.0-97.0); BG PCO2 29.8 mmHg (35.0-45.0); BG PH 7.454 (7.350-7.450); BG PO2 91.6 mmHg (75.0-100.0); BG SAMPLE SITE ALINE; BG TOTAL HEMOGLOBIN 9.1 g/dL (12.0-18.0); BG VENT MODE VENT - AC
[2022-06-11] MEDS ORDERED: IPRATROPIUM BROMIDE (0.02%) 0.5MG/2.5ML NEB HHN PRN (09:00)
[2022-06-11] MEDS: AMLODIPINE 10MG TABLET PO SCH (09:00)
[2022-06-11] MEDS: LACTULOSE 20G/30ML UDC PO SCH (09:42)
[2022-06-11] MEDS: MIDODRINE HCL 5MG TABLET PO SCH ×3 (09:42→17:00)
[2022-06-11] MEDS: OCTREOTIDE ACETATE 50 MCG/ML 1ML SUBCUT SCH ×2 (09:42→21:11)
[2022-06-11] MEDS: PANTOPRAZOLE SODIUM 40 MG/VIAL IV SCH ×2 (09:42→21:11)
[2022-06-11] MEDS: FENTANYL CITRATE 2,500 MCG in SODIUM CHLORIDE 0.9% 200 ML IV PRN (10:52)
[2022-06-11] MEDS: NOREPINEPHRINE 32 MG in DEXT 5% WATER 218 ML IV PRN (10:52)
[2022-06-11] MEDS ORDERED: AMIODARONE HCL 150 MG in DEXT 5% WATER 100 ML IV NR (12:00)
[2022-06-11] MEDS: DEXT 5%/0.45% NACL 1000ML 1,000 ML IV SCH (13:01)
[2022-06-11] MEDS: MEROPENEM 1,000 MG in SODIUM CHLORIDE 0.9% 100 ML IV SCH (13:04)
[2022-06-11] MEDS: IPRATROPIUM BROMIDE (0.02%) 0.5MG/2.5ML NEB HHN SCH ×2 (13:47→19:49)
[2022-06-11] MEDS ORDERED: DAPTOMYCIN 600 MG in SODIUM CHLORIDE 0.9% 50 ML IV SCH (23:59)
[2022-06-12] VITALS (111 sets, daily range): BP systolic 2–180; BP diastolic 1–102
[2022-06-12] MEDS: BLOOD SUGAR DIAGNOSTIC STRIP TEST SCH ×6 (00:03→20:00)
[2022-06-12] MEDS: MICAFUNGIN 100 MG in SODIUM CHLORIDE 0.9% 100 ML IV SCH (00:03)
[2022-06-12] MEDS: VASOPRESSIN 20 UNIT in SODIUM CHLORIDE 0.9% 99 ML IV PRN ×2 (01:20→13:00)
[2022-06-12] MEDS: IPRATROPIUM BROMIDE (0.02%) 0.5MG/2.5ML NEB HHN SCH ×5 (01:37→20:43)
[2022-06-12] MEDS: PHENYLEPHRINE 100 MG in DEXT 5% WATER 240 ML IV PRN ×4 (02:05→18:51)
[2022-06-12] MEDS: INSULIN LISPRO 100 UNITS/ML SUBCUT SCH ×6 (04:00→20:00)
[2022-06-12 06:27] LABS: HEMATOCRIT. 24.1 % (42.0-52.0); HEMOGLOBIN. 7.9 g/dL (14.0-18.0); MEAN CORPUSCULAR HEMOGLOBIN 33.9 pg (28.0-32.0); MEAN CORPUSCULAR VOLUME 103.3 fL (80.0-94.0); MEAN PLATELET VOLUME 9.4 fl (7.4-10.4); RED BLOOD CELL COUNT 2.33 mill/uL (4.7-6.1); RED CELL DISTRIBUTION WIDTH 23.9 % (11.6-14.6)
[2022-06-12] MEDS: AMLODIPINE 10MG TABLET PO SCH (08:55)
[2022-06-12] MEDS: OCTREOTIDE ACETATE 50 MCG/ML 1ML SUBCUT SCH ×2 (08:55→22:11)
[2022-06-12] MEDS: PANTOPRAZOLE SODIUM 40 MG/VIAL IV SCH ×2 (08:55→21:53)
[2022-06-12] MEDS: LACTULOSE 20G/30ML UDC PO SCH (08:55)
[2022-06-12] MEDS: MIDODRINE HCL 5MG TABLET PO SCH ×3 (08:55→16:07)
[2022-06-12 09:02] LABS: BG BASE EXCESS -2.9 mmol/L (-2.0-2.0); BG DEOXYHEMOGLOBIN 7.1 % (0.0-5.0); BG FRACTION INSPIRED OXYGEN 35; BG HCO3 ACT 20.8 mmol/L (22.0-26.0); BG METHEMOGLOBIN 0.4 % (0.0-1.5); BG OXYGEN SATURATION 92.8 % (92.0-98.5); BG OXYHEMOGLOBIN 91.5 % (94.0-97.0); BG PCO2 32.2 mmHg (35.0-45.0); BG PH 7.429 (7.350-7.450); BG SAMPLE SITE ALINE; BG VENT MODE VENT - AC
[2022-06-12] MEDS: DEXT 5%/0.45% NACL 1000ML 1,000 ML IV SCH (12:09)
[2022-06-12] MEDS: MEROPENEM 1,000 MG in SODIUM CHLORIDE 0.9% 100 ML IV SCH (13:14)
[2022-06-12 13:16] LABS: NUCLEATED RED BLOOD CELLS 22 /100 WBC
[2022-06-12 13:17] LABS: PLATELET ESTIMATE MARKEDLY DECREASED
[2022-06-12 13:23] LABS: PLATELET 32 x1000/uL (130-400)
[2022-06-12] MEDS: FENTANYL CITRATE 2,500 MCG in SODIUM CHLORIDE 0.9% 200 ML IV PRN (18:20)
[2022-06-13] VITALS (101 sets, daily range): BP systolic 56–175; BP diastolic 32–106
[2022-06-13] MEDS: BLOOD SUGAR DIAGNOSTIC STRIP TEST SCH ×6 (00:14→20:00)
[2022-06-13] MEDS: IPRATROPIUM BROMIDE (0.02%) 0.5MG/2.5ML NEB HHN SCH ×4 (00:16→20:12)
[2022-06-13] MEDS: ACETYLCYSTEINE 100MG/ML 10% VIAL 4ML INH SCH ×3 (00:17→14:26)
[2022-06-13] MEDS: MICAFUNGIN 100 MG in SODIUM CHLORIDE 0.9% 100 ML IV SCH (01:03)
[2022-06-13] MEDS: VASOPRESSIN 20 UNIT in SODIUM CHLORIDE 0.9% 99 ML IV PRN ×3 (01:04→17:57)
[2022-06-13] MEDS: NOREPINEPHRINE 32 MG in DEXT 5% WATER 218 ML IV PRN ×2 (01:04→17:57)
[2022-06-13] MEDS: PHENYLEPHRINE 100 MG in DEXT 5% WATER 240 ML IV PRN (01:27)
[2022-06-13] MEDS: INSULIN LISPRO 100 UNITS/ML SUBCUT SCH ×6 (04:00→20:00)
[2022-06-13 05:55] LABS: HEMATOCRIT. 26.5 % (42.0-52.0); HEMOGLOBIN. 8.9 g/dL (14.0-18.0); MEAN CORPUSCULAR HEMOGLOBIN 34.6 pg (28.0-32.0); MEAN CORPUSCULAR VOLUME 102.9 fL (80.0-94.0); MEAN PLATELET VOLUME 9.4 fl (7.4-10.4); RED BLOOD CELL COUNT 2.58 mill/uL (4.7-6.1); RED CELL DISTRIBUTION WIDTH 23.9 % (11.6-14.6)
[2022-06-13 06:02] LABS: PLATELET 30 x1000/uL (130-400)
[2022-06-13 08:20] LABS: BG BASE EXCESS -4.3 mmol/L (-2.0-2.0); BG DEOXYHEMOGLOBIN 10.6 % (0.0-5.0); BG FRACTION INSPIRED OXYGEN 35; BG HCO3 ACT 20.2 mmol/L (22.0-26.0); BG METHEMOGLOBIN 0.3 % (0.0-1.5); BG OXYGEN SATURATION 89.3 % (92.0-98.5); BG OXYHEMOGLOBIN 88.1 % (94.0-97.0); BG PCO2 34.9 mmHg (35.0-45.0); BG PO2 61.5 mmHg (75.0-100.0); BG SAMPLE SITE RIGHT RADIAL; BG TOTAL HEMOGLOBIN 10.2 g/dL (12.0-18.0); BG VENT MODE VENT - AC
[2022-06-13] MEDS: MIDODRINE HCL 5MG TABLET PO SCH ×3 (09:00→17:49)
[2022-06-13] MEDS: LACTULOSE 20G/30ML UDC PO SCH (09:35)
[2022-06-13] MEDS: OCTREOTIDE ACETATE 50 MCG/ML 1ML SUBCUT SCH (09:35)
[2022-06-13] MEDS: PANTOPRAZOLE SODIUM 40 MG/VIAL IV SCH (09:35)
[2022-06-13] MEDS: DEXT 5%/0.45% NACL 1000ML 1,000 ML IV SCH (09:36)
[2022-06-13 10:34] LABS: NUCLEATED RED BLOOD CELLS 15 /100 WBC
[2022-06-13 10:35] LABS: PLATELET ESTIMATE MARKEDLY DECREASED
[2022-06-13] MEDS ORDERED: IPRATROPIUM BROMIDE (0.02%) 0.5MG/2.5ML NEB ONE (12:31)
[2022-06-13] MEDS: MEROPENEM 1,000 MG in SODIUM CHLORIDE 0.9% 100 ML IV SCH (14:05)
[2022-06-13] MEDS: DAPTOMYCIN 600 MG in SODIUM CHLORIDE 0.9% 50 ML IV SCH (14:05)
[2022-06-13 17:17] LABS: INR 2.1; PROTHROMBIN TIME 21.3 sec (9.6-11.0)
[2022-06-13] MEDS: FENTANYL CITRATE 2,500 MCG in SODIUM CHLORIDE 0.9% 200 ML IV PRN (17:58)
[2022-06-14] VITALS (61 sets, daily range): BP systolic 57–163; BP diastolic 34–113
[2022-06-14] MEDS: OCTREOTIDE ACETATE 50 MCG/ML 1ML SUBCUT SCH ×3 (00:04→21:46)
[2022-06-14] MEDS: PANTOPRAZOLE SODIUM 40 MG/VIAL IV SCH ×3 (00:04→21:45)
[2022-06-14] MEDS: BLOOD SUGAR DIAGNOSTIC STRIP TEST SCH ×6 (00:05→20:00)
[2022-06-14] MEDS: MICAFUNGIN 100 MG in SODIUM CHLORIDE 0.9% 100 ML IV SCH (01:03)
[2022-06-14] MEDS: IPRATROPIUM BROMIDE (0.02%) 0.5MG/2.5ML NEB HHN SCH ×4 (02:15→21:27)
[2022-06-14] MEDS: INSULIN LISPRO 100 UNITS/ML SUBCUT SCH ×6 (04:00→20:00)
[2022-06-14 05:38] LABS: HEMATOCRIT. 27.3 % (42.0-52.0); HEMOGLOBIN. 9.2 g/dL (14.0-18.0); MEAN CORPUSCULAR HEMOGLOBIN 34.8 pg (28.0-32.0); MEAN CORPUSCULAR VOLUME 103.4 fL (80.0-94.0); MEAN PLATELET VOLUME 9.3 fl (7.4-10.4); PLATELET 70 x1000/uL (130-400); RED BLOOD CELL COUNT 2.64 mill/uL (4.7-6.1); RED CELL DISTRIBUTION WIDTH 23.8 % (11.6-14.6)
[2022-06-14 07:44] LABS: NUCLEATED RED BLOOD CELLS 7 /100 WBC; PLATELET ESTIMATE DECREASED
[2022-06-14 08:20] LABS: PROTHROMBIN TIME 20.3 sec (9.6-11.0)
[2022-06-14] MEDS: MIDODRINE HCL 5MG TABLET PO SCH ×3 (08:44→17:45)
[2022-06-14] MEDS: LACTULOSE 20G/30ML UDC PO SCH (08:45)
[2022-06-14] MEDS: NOREPINEPHRINE 32 MG in DEXT 5% WATER 218 ML IV PRN ×2 (10:39→23:39)
[2022-06-14 11:05] LABS: BG SAMPLE SITE RIGHT RADIAL; BG TIDAL VOLUME(mL) 500 mL; BG VENT MODE VENT A/C; BG VENT RATE 20 set
[2022-06-14 11:06] LABS: BG FRACTION INSPIRED OXYGEN 35; BG PEEP (cmH2O) 5 cmH2O; BG TOTAL RESPIRATORY RATE 20 b/min
[2022-06-14 11:07] LABS: BG PCO2 34.6 mmHg (35.0-45.0); BG PO2 93.9 mmHg (75.0-100.0)
[2022-06-14 11:08] LABS: BG BASE EXCESS -4.9 mmol/L (-2.0-2.0); BG HCO3 ACT 19.7 mmol/L (22.0-26.0); BG TOTAL HEMOGLOBIN 9.4 g/dL (12.0-18.0)
[2022-06-14 11:09] LABS: BG OXYGEN SATURATION 95.5 % (92.0-98.5)
[2022-06-14 11:10] LABS: BG CARBOXYHEMOGLOBIN 1.2 % (0.5-1.5); BG METHEMOGLOBIN 0.3 % (0.0-1.5)
[2022-06-14] MEDS: DEXT 5%/0.45% NACL 1000ML 1,000 ML IV SCH (11:28)
[2022-06-14] MEDS: MEROPENEM 1,000 MG in SODIUM CHLORIDE 0.9% 100 ML IV SCH (13:44)
[2022-06-14] MEDS ORDERED: FENTANYL 2500MCG/250ML PMX 250 ML IV PRN (20:15)
[2022-06-14] MEDS ORDERED: MIDAZOLAM HCL 100 MG in SODIUM CHLORIDE 0.9% 80 ML IV PRN (21:00)
[2022-06-14] MEDS: ACETYLCYSTEINE 100MG/ML 10% VIAL 4ML INH SCH (21:27)
[2022-06-14] MEDS: FENTANYL CITRATE 2,500 MCG in SODIUM CHLORIDE 0.9% 200 ML IV PRN (21:55)
[2022-06-15] VITALS (98 sets, daily range): BP systolic 61–158; BP diastolic 24–128
[2022-06-15] MEDS: BLOOD SUGAR DIAGNOSTIC STRIP TEST SCH ×6 (00:38→20:00)
[2022-06-15] MEDS: IPRATROPIUM BROMIDE (0.02%) 0.5MG/2.5ML NEB HHN SCH ×4 (02:33→20:32)
[2022-06-15] MEDS: MICAFUNGIN 100 MG in SODIUM CHLORIDE 0.9% 100 ML IV SCH (02:36)
[2022-06-15] MEDS: INSULIN LISPRO 100 UNITS/ML SUBCUT SCH ×7 (04:00→20:00)
[2022-06-15] MEDS: NOREPINEPHRINE 32 MG in DEXT 5% WATER 218 ML IV PRN ×2 (06:57→23:38)
[2022-06-15 08:03] LABS: BG BASE EXCESS -6.2 mmol/L (-2.0-2.0); BG CARBOXYHEMOGLOBIN 1.1 % (0.5-1.5); BG DEOXYHEMOGLOBIN 8.6 % (0.0-5.0); BG FRACTION INSPIRED OXYGEN 35; BG HCO3 ACT 18.6 mmol/L (22.0-26.0); BG METHEMOGLOBIN 0.3 % (0.0-1.5); BG OXYGEN SATURATION 91.3 % (92.0-98.5); BG PCO2 33.9 mmHg (35.0-45.0); BG PH 7.357 (7.350-7.450); BG PO2 69.1 mmHg (75.0-100.0); BG SAMPLE SITE LEFT RADIAL; BG TOTAL HEMOGLOBIN 9.4 g/dL (12.0-18.0); BG VENT MODE VENT - AC
[2022-06-15 08:17] LABS: HEMATOCRIT. 26.9 % (42.0-52.0); HEMOGLOBIN. 8.8 g/dL (14.0-18.0); MEAN CORPUSCULAR HEMOGLOBIN 34.1 pg (28.0-32.0); MEAN CORPUSCULAR VOLUME 104.5 fL (80.0-94.0); MEAN PLATELET VOLUME 10.7 fl (7.4-10.4); PLATELET 53 x1000/uL (130-400); RED BLOOD CELL COUNT 2.58 mill/uL (4.7-6.1); RED CELL DISTRIBUTION WIDTH 22.9 % (11.6-14.6)
[2022-06-15] MEDS: ACETYLCYSTEINE 100MG/ML 10% VIAL 4ML INH SCH ×2 (08:30→14:10)
[2022-06-15] MEDS: OCTREOTIDE ACETATE 50 MCG/ML 1ML SUBCUT SCH ×2 (09:29→21:56)
[2022-06-15] MEDS: LACTULOSE 20G/30ML UDC PO SCH (09:29)
[2022-06-15] MEDS: PANTOPRAZOLE SODIUM 40 MG/VIAL IV SCH ×2 (09:29→21:55)
[2022-06-15] MEDS: MIDODRINE HCL 5MG TABLET PO SCH ×3 (09:30→16:52)
[2022-06-15 10:32] LABS: PHOSPHORUS 8.7 mg/dL (2.5-4.9)
[2022-06-15] MEDS: PHENYLEPHRINE 100 MG in DEXT 5% WATER 240 ML IV PRN ×2 (11:25→23:39)
[2022-06-15 14:25] LABS: NUCLEATED RED BLOOD CELLS 4 /100 WBC
[2022-06-15 14:28] LABS: PLATELET ESTIMATE MARKEDLY DECREASED
[2022-06-15] MEDS: MEROPENEM 1,000 MG in SODIUM CHLORIDE 0.9% 100 ML IV SCH (15:00)
[2022-06-15] MEDS: DAPTOMYCIN 600 MG in SODIUM CHLORIDE 0.9% 50 ML IV SCH (15:00)
[2022-06-15] MEDS: DEXTROSE 50% WATER 50ML SYRINGE IV PRN (15:54)
[2022-06-15] MEDS ORDERED: TOTAL PARENTERAL NUTRITION 1,200 ML IV SCH (21:00)
[2022-06-16] VITALS (106 sets, daily range): BP systolic 61–138; BP diastolic 38–107
[2022-06-16] MEDS: IPRATROPIUM BROMIDE (0.02%) 0.5MG/2.5ML NEB HHN SCH ×4 (00:19→20:15)
[2022-06-16] MEDS: BLOOD SUGAR DIAGNOSTIC STRIP TEST SCH ×6 (00:51→20:19)
[2022-06-16] MEDS: INSULIN LISPRO 100 UNITS/ML SUBCUT SCH ×6 (04:00→20:24)
[2022-06-16 06:14] LABS: HEMATOCRIT. 25.3 % (42.0-52.0); HEMOGLOBIN. 8.3 g/dL (14.0-18.0); MEAN CORPUSCULAR HEMOGLOBIN 34.9 pg (28.0-32.0); MEAN PLATELET VOLUME 11.1 fl (7.4-10.4); RED BLOOD CELL COUNT 2.38 mill/uL (4.7-6.1); RED CELL DISTRIBUTION WIDTH 23.3 % (11.6-14.6)
[2022-06-16] MEDS: MICAFUNGIN 100 MG in SODIUM CHLORIDE 0.9% 100 ML IV SCH (06:35)
[2022-06-16] MEDS: PHENYLEPHRINE 100 MG in DEXT 5% WATER 240 ML IV PRN ×3 (06:55→16:36)
[2022-06-16] MEDS: FENTANYL CITRATE 2,500 MCG in SODIUM CHLORIDE 0.9% 200 ML IV PRN (07:41)
[2022-06-16] MEDS: LACTULOSE 20G/30ML UDC PO SCH (08:57)
[2022-06-16] MEDS: MIDODRINE HCL 5MG TABLET PO SCH ×3 (08:58→16:38)
[2022-06-16] MEDS: PANTOPRAZOLE SODIUM 40 MG/VIAL IV SCH ×2 (08:58→21:19)
[2022-06-16 09:12] LABS: BG BASE EXCESS -8.2 mmol/L (-2.0-2.0); BG CARBOXYHEMOGLOBIN 0.9 % (0.5-1.5); BG DEOXYHEMOGLOBIN 8.3 % (0.0-5.0); BG FRACTION INSPIRED OXYGEN 40; BG METHEMOGLOBIN 0.4 % (0.0-1.5); BG OXYGEN SATURATION 91.6 % (92.0-98.5); BG OXYHEMOGLOBIN 90.4 % (94.0-97.0); BG PCO2 33.8 mmHg (35.0-45.0); BG SAMPLE SITE RIGHT RADIAL; BG TOTAL HEMOGLOBIN 9.3 g/dL (12.0-18.0); BG VENT MODE VENT - SIMV
[2022-06-16] MEDS: OCTREOTIDE ACETATE 50 MCG/ML 1ML SUBCUT SCH ×2 (09:46→21:19)
[2022-06-16] MEDS ORDERED: TOTAL PARENTERAL NUTRITION 1,200 ML IV SCH (09:51)
[2022-06-16 10:18] LABS: NUCLEATED RED BLOOD CELLS 3 /100 WBC
[2022-06-16 10:19] LABS: PLATELET ESTIMATE MARKEDLY DECREASED
[2022-06-16 10:20] LABS: PLATELET 47 x1000/uL (130-400)
[2022-06-16] MEDS: MEROPENEM 1,000 MG in SODIUM CHLORIDE 0.9% 100 ML IV SCH (14:30)
[2022-06-16] MEDS: NOREPINEPHRINE 32 MG in DEXT 5% WATER 218 ML IV PRN (16:38)
[2022-06-17] VITALS (113 sets, daily range): BP systolic 45–165; BP diastolic 18–110
[2022-06-17] MEDS: BLOOD SUGAR DIAGNOSTIC STRIP TEST SCH ×6 (00:50→20:00)
[2022-06-17] MEDS: MICAFUNGIN 100 MG in SODIUM CHLORIDE 0.9% 100 ML IV SCH (00:51)
[2022-06-17] MEDS: PHENYLEPHRINE 100 MG in DEXT 5% WATER 240 ML IV PRN ×5 (00:52→22:57)
[2022-06-17] MEDS: IPRATROPIUM BROMIDE (0.02%) 0.5MG/2.5ML NEB HHN SCH ×3 (01:50→19:52)
[2022-06-17] MEDS: NOREPINEPHRINE 32 MG in DEXT 5% WATER 218 ML IV PRN ×4 (03:35→22:56)
[2022-06-17] MEDS: INSULIN LISPRO 100 UNITS/ML SUBCUT SCH ×6 (04:00→20:00)
[2022-06-17] MEDS: DEXTROSE 50% WATER 50ML SYRINGE IV PRN ×4 (05:32→21:34)
[2022-06-17 05:33] LABS: HEMATOCRIT. 23.2 % (42.0-52.0); HEMOGLOBIN. 7.6 g/dL (14.0-18.0); MEAN CORPUSCULAR HEMOGLOBIN 34.6 pg (28.0-32.0); MEAN CORPUSCULAR VOLUME 106.2 fL (80.0-94.0); RED BLOOD CELL COUNT 2.18 mill/uL (4.7-6.1); RED CELL DISTRIBUTION WIDTH 23.3 % (11.6-14.6)
[2022-06-17 06:47] LABS: PHOSPHORUS 8.5 mg/dL (2.5-4.9)
[2022-06-17] MEDS: DEXTROSE 10% WATER 1,000 ML IV SCH ×4 (07:55→21:41)
[2022-06-17] MEDS: PANTOPRAZOLE SODIUM 40 MG/VIAL IV SCH ×2 (08:45→21:52)
[2022-06-17] MEDS: MIDODRINE HCL 5MG TABLET PO SCH ×3 (08:45→17:32)
[2022-06-17] MEDS: OCTREOTIDE ACETATE 50 MCG/ML 1ML SUBCUT SCH ×2 (08:45→21:55)
[2022-06-17] MEDS: LACTULOSE 20G/30ML UDC PO SCH (08:45)
[2022-06-17 09:10] LABS: BG BASE EXCESS -10.5 mmol/L (-2.0-2.0); BG DEOXYHEMOGLOBIN 14.6 % (0.0-5.0); BG FRACTION INSPIRED OXYGEN 100; BG HCO3 ACT 14.7 mmol/L (22.0-26.0); BG METHEMOGLOBIN 0.7 % (0.0-1.5); BG OXYGEN SATURATION 85.1 % (92.0-98.5); BG OXYHEMOGLOBIN 83.7 % (94.0-97.0); BG PH 7.307 (7.350-7.450); BG PO2 60.1 mmHg (75.0-100.0); BG SAMPLE SITE RIGHT BRACHIAL; BG TOTAL HEMOGLOBIN 8.7 g/dL (12.0-18.0)
[2022-06-17 11:06] LABS: NUCLEATED RED BLOOD CELLS 4 /100 WBC
[2022-06-17 11:07] LABS: PLATELET ESTIMATE MARKEDLY DECREASED
[2022-06-17 11:08] LABS: PLATELET 29 x1000/uL (130-400)
[2022-06-17] MEDS: DAPTOMYCIN 600 MG in SODIUM CHLORIDE 0.9% 50 ML IV SCH (13:56)
[2022-06-17 15:49] LABS: BG BASE EXCESS -12.5 mmol/L (-2.0-2.0); BG CARBOXYHEMOGLOBIN 0.7 % (0.5-1.5); BG DEOXYHEMOGLOBIN 13.7 % (0.0-5.0); BG FRACTION INSPIRED OXYGEN 100; BG HCO3 ACT 13.8 mmol/L (22.0-26.0); BG METHEMOGLOBIN 0.9 % (0.0-1.5); BG OXYGEN SATURATION 86.1 % (92.0-98.5); BG OXYHEMOGLOBIN 84.7 % (94.0-97.0); BG PCO2 32.8 mmHg (35.0-45.0); BG PH 7.241 (7.350-7.450); BG PO2 64.4 mmHg (75.0-100.0); BG SAMPLE SITE RIGHT RADIAL; BG TOTAL HEMOGLOBIN 8.9 g/dL (12.0-18.0); BG VENT MODE VENT - AC
[2022-06-17] MEDS ORDERED: SODIUM BICARBONATE 8.4% 1 MEQ/ML 50ML SYR IV NR (16:00)
[2022-06-17] MEDS: MEROPENEM 1,000 MG in SODIUM CHLORIDE 0.9% 100 ML IV SCH (17:32)
[2022-06-17] MEDS: VASOPRESSIN 20 UNIT in SODIUM CHLORIDE 0.9% 99 ML IV PRN ×2 (17:36→23:22)
[2022-06-18] VITALS (7 sets, daily range): BP systolic 50–188; BP diastolic 18–118
[2022-06-18] MEDS ORDERED: MEROPENEM 1,000 MG in SODIUM CHLORIDE 0.9% 100 ML IV SCH (17:00)
[2022-06-18] MEDS ORDERED: FAT EMULSIONS 500 ML IV SCH (21:00)
== END 2022-06-18 | DRG 710 ==
LOC: ER 08:13 → MICUSO 11:28 → EDBEDREQ 11:33 → EDBEDREQTM 11:33 → CVICU 18:45 → 5EST 06-04 04:39 → 3WST 06-05 16:08 → 5EST 06-08 01:46 → CVICU 06-08 07:40
PROVIDERS: ADMIT Internal Medicine; ATTEND Internal Medicine
PROC: 5A1955Z Respiratory Ventilation, Greater than 96 Consecutive Hours (ICD-10-PCS; principal; 2022-05-29)
PROC: 0BH17EZ Insertion of Endotracheal Airway into Trachea, Via Natural or Artificial Opening (ICD-10-PCS; 2022-05-29)
PROC: 30233L1 Transfusion of Nonautologous Fresh Plasma into Peripheral Vein, Percutaneous Approach (ICD-10-PCS; 2022-05-31)
PROC: 0DB78ZX Excision of Stomach, Pylorus, Via Natural or Artificial Opening Endoscopic, Diagnostic (ICD-10-PCS; 2022-05-31)
PROC: 02HV33Z Insertion of Infusion Device into Superior Vena Cava, Percutaneous Approach (ICD-10-PCS; 2022-06-02)
PROC: B548ZZA Ultrasonography of Superior Vena Cava, Guidance (ICD-10-PCS; 2022-06-02)
PROC: 5A1D70Z Performance of Urinary Filtration, Intermittent, Less than 6 Hours Per Day (ICD-10-PCS; 2022-06-02)
PROC: 5A1D70Z Performance of Urinary Filtration, Intermittent, Less than 6 Hours Per Day (ICD-10-PCS; 2022-06-04)
PROC: 4A00X4Z Measurement of Central Nervous Electrical Activity, External Approach (ICD-10-PCS; 2022-06-05)
PROC: 5A1D70Z Performance of Urinary Filtration, Intermittent, Less than 6 Hours Per Day (ICD-10-PCS; 2022-06-06)
PROC: 0BH17EZ Insertion of Endotracheal Airway into Trachea, Via Natural or Artificial Opening (ICD-10-PCS; 2022-06-08)
PROC: 5A1955Z Respiratory Ventilation, Greater than 96 Consecutive Hours (ICD-10-PCS; 2022-06-08)
PROC: 5A1D70Z Performance of Urinary Filtration, Intermittent, Less than 6 Hours Per Day (ICD-10-PCS; 2022-06-08)
PROC: 5A09357 Assistance with Respiratory Ventilation, Less than 24 Consecutive Hours, Continuous Positive Airway Pressure (ICD-10-PCS; 2022-06-08)
PROC: 0D1B0Z4 Bypass Ileum to Cutaneous, Open Approach (ICD-10-PCS; 2022-06-09)
PROC: 30233N1 Transfusion of Nonautologous Red Blood Cells into Peripheral Vein, Percutaneous Approach (ICD-10-PCS; 2022-06-09)
PROC: 0DTF0ZZ Resection of Right Large Intestine, Open Approach (ICD-10-PCS; 2022-06-09)
PROC: 0D1L0Z4 Bypass Transverse Colon to Cutaneous, Open Approach (ICD-10-PCS; 2022-06-09)
PROC: 0WQF0ZZ Repair Abdominal Wall, Open Approach (ICD-10-PCS; 2022-06-09)
PROC: 5A1D70Z Performance of Urinary Filtration, Intermittent, Less than 6 Hours Per Day (ICD-10-PCS; 2022-06-09)
PROC: 30233R1 Transfusion of Nonautologous Platelets into Peripheral Vein, Percutaneous Approach (ICD-10-PCS; 2022-06-10)
PROC: 06HY33Z Insertion of Infusion Device into Lower Vein, Percutaneous Approach (ICD-10-PCS; 2022-06-10)
PROC: 03HY32Z Insertion of Monitoring Device into Upper Artery, Percutaneous Approach (ICD-10-PCS; 2022-06-10)
PROC: 5A2204Z Restoration of Cardiac Rhythm, Single (ICD-10-PCS; 2022-06-10)
PROC: 5A1D70Z Performance of Urinary Filtration, Intermittent, Less than 6 Hours Per Day (ICD-10-PCS; 2022-06-12)
PROC: 5A1D70Z Performance of Urinary Filtration, Intermittent, Less than 6 Hours Per Day (ICD-10-PCS; 2022-06-16)
PROC: 5A1D70Z Performance of Urinary Filtration, Intermittent, Less than 6 Hours Per Day (ICD-10-PCS; 2022-06-17)
DX: A41.51 Sepsis due to Escherichia coli [E. coli] (principal); J96.01 Acute respiratory failure with hypoxia; K76.7 Hepatorenal syndrome; R65.21 Severe sepsis with septic shock; E43 Unspecified severe protein-calorie malnutrition; K25.4 Chronic or unspecified gastric ulcer with hemorrhage; G92.8 Other toxic encephalopathy; E72.4 Disorders of ornithine metabolism; D68.9 Coagulation defect, unspecified; K26.4 Chronic or unspecified duodenal ulcer with hemorrhage; D69.6 Thrombocytopenia, unspecified; J18.9 Pneumonia, unspecified organism; E87.20 Acidosis, unspecified; I85.10 Secondary esophageal varices without bleeding; K76.82 Hepatic encephalopathy; E87.5 Hyperkalemia; Z66 Do not resuscitate; D50.9 Iron deficiency anemia, unspecified; D53.9 Nutritional anemia, unspecified; F10.21 Alcohol dependence, in remission; K42.9 Umbilical hernia without obstruction or gangrene; N20.0 Calculus of kidney; R65.20 Severe sepsis without septic shock; K26.9 Duodenal ulcer, unspecified as acute or chronic, without hemorrhage or perforation; E87.1 Hypo-osmolality and hyponatremia; N17.9 Acute kidney failure, unspecified; N18.9 Chronic kidney disease, unspecified; N48.29 Other inflammatory disorders of penis; I12.9 Hypertensive chronic kidney disease with stage 1 through stage 4 chronic kidney disease, or unspecified chronic kidney disease; Z20.822 Contact with and (suspected) exposure to COVID-19; K76.6 Portal hypertension; I47.20 Ventricular tachycardia, unspecified; J98.11 Atelectasis; K43.9 Ventral hernia without obstruction or gangrene; K29.51 Unspecified chronic gastritis with bleeding; K44.9 Diaphragmatic hernia without obstruction or gangrene; I31.9 Disease of pericardium, unspecified; R73.9 Hyperglycemia, unspecified; K76.89 Other specified diseases of liver; E80.6 Other disorders of bilirubin metabolism; I47.29 Other ventricular tachycardia; R91.8 Other nonspecific abnormal finding of lung field; R74.01 Elevation of levels of liver transaminase levels; D63.1 Anemia in chronic kidney disease; I82.403 Acute embolism and thrombosis of unspecified deep veins of lower extremity, bilateral; N30.90 Cystitis, unspecified without hematuria; K57.31 Diverticulosis of large intestine without perforation or abscess with bleeding; K70.30 Alcoholic cirrhosis of liver without ascites; Z87.11 Personal history of peptic ulcer disease; Z68.41 Body mass index [BMI] 40.0-44.9, adult
CPT/HCPCS: 31500; 36415; 36556; 36600; 71045; 74176; 74177; 76705; 76937; 80048; 80053; 80076; 80202; 80305; 80307; 80320; 80329; 81003; 82140; 82375; 82550; 82570; 82607; 82728; 82746; 82805; 82962; 83036; 83540; 83550; 83605; 83735; 84100; 84145; 84300; 84478; 84484; 85014; 85018; 85025; 85027; 85044; 85049; 86705; 86706; 86709; 86803; 86850; 86900; 86920; 86927; 87070; 87075; 87077; 87106; 87186; 87340; 87426; 88302; 88305; 88307; 90935; 93005; 93306; 93970; 94002; 94003; 94640; 94660; 95816; 97162; 97166; 97530; 99291; A6261; C1752; C1887; C9113; J0282; J0295; J0456; J0610; J0690; J0692; J0696; J0878; J1100; J1160; J1815; J1940; J2060; J2185; J2248; J2250; J2354; J2370; J2405; J2543; J2704; J2765; J3010; J3370; J3430; J3490; J7030; J7050; J7060; P9016; P9017; P9034; P9041; P9047; Q9963; Q9967; G0480